=== PATIENT | female | born 1955 | race Caucasian/White ===

== ENCOUNTER → 2016-10-19 | Outpatient (CLI) | payer BC ==
--- NOTE | 2016-10-22 11:47 | MM ---
Reason for exam: screening (asymptomatic). Last mammogram was performed 2 years and 9 months ago. History: Patient is postmenopausal. Family history of breast cancer in aunt. Benign stereotactic core biopsy of the left breast, April 25, 2001. Core biopsy of the left breast. Taking unspecified hormones for 2 months. Physical Findings: A clinical breast exam by your physician is recommended on an annual basis and results should be correlated with mammographic findings. MG Screening Mammo w CAD Bilateral CC and MLO view(s) were taken. XCCL view(s) were taken of the right breast. Prior study comparison: January 06, 2014, bilateral MG screening mammo w CAD. May 09, 2012, bilateral digital screening mammo w/CAD. Finding: There is a 9 mm equal density mass in the upper outer quadrant of the left breast. Previous mammotome biopsy in the left breast. There is a chronic nodularity in the left breast. ASSESSMENT: Incomplete: need additional imaging evaluation, BI-RAD 0 RECOMMENDATION: Special view mammogram of the left breast. If lesion persists on supplemental views, image directed ultrasound is recommended. [facility] will attempt to contact patient to return for supplemental views and ultrasound if indicated.
== END | disposition home or self-care (01) ==
LOC: RADMAMWWP 11:44
PROVIDERS: ATTEND Internal Medicine
DX: Z12.31 Encounter for screening mammogram for malignant neoplasm of breast (principal)

== ENCOUNTER 2017-03-30 13:14 | Emergency (ER) | payer BC ==
[2017-03-30] MEDS ORDERED: ADENOSINE 3 MG/ML 2 ML VIAL IVP STA ×2 (13:42)
[2017-03-30] MEDS ORDERED: DILTIAZEM 125 MG in SODIUM CHLORIDE 0.9% 100 ML IV ONE (13:48)
[2017-03-30] MEDS ORDERED: SODIUM CHLORIDE 0.9% 500 ML IV STA (13:51)
[2017-03-30 13:55] LABS: Basophils # (A) 0.1 k/uL (0-0.2); Basophils % (A) 1 %; Eosinophils # (A) 0.2 k/uL (0-0.7); Eosinophils % (A) 2 %; HCT 49.6 % (34.0-46.0); HGB 15.6 gm/dL (11.4-16.0); Lymphocytes # (A) 3.5 k/uL (1.0-4.8); Lymphocytes % (A) 28 %; MCH 30.3 pg (25.0-35.0); MCHC 31.4 g/dL (31.0-37.0); MCV 96.7 fL (80.0-100.0); Mean Platelet Volume 7.8; Monocytes # (A) 0.4 k/uL (0-1.0); Monocytes % (A) 4 %; Neutrophils % (A) 65 %; Platelet Count 476 k/uL (150-450); RBC 5.13 m/uL (3.80-5.40); RDW 14.4 % (11.5-15.5); WBC 12.4 k/uL (3.8-10.6)
[2017-03-30 13:57] VITALS: RESP 18
--- NOTE | 2017-03-30 14:01 | ED ---
Arrhythmia/Palpitations HPI - General Chief Complaint: Arrhythmia/Palpitations Stated Complaint: Tachycardia Time Seen by Provider: 03/30/17 13:29 Source: patient, RN notes reviewed Mode of arrival: wheelchair - History of Present Illness Initial Comments: This is a 61-year-old female history of atrial fibrillation who states she woke up this way with increased heart rate and this he has lightheadedness dizziness and sweating. She thought she might be back in atrial fibrillation she had no overt chest pain. No other symptoms she states she believes she felt okay last night when she went to bed. She is on medication but does not know the names of them MD Complaint: rapid heart beat, palpitations, irregular heart beat - Related Data Home Medications Medication Instructions Recorded Confirmed Aspirin 81 mg PO DAILY 03/30/17 03/30/17 LORazepam [Ativan] 0.5 mg PO BID PRN 03/30/17 03/30/17 Lisinopril [Zestril] 10 mg PO DAILY 03/30/17 03/30/17 Metoprolol Succinate (ER) [Toprol 25 mg PO DAILY 03/30/17 03/30/17 Xl] Allergies Allergy/AdvReac Type Severity Reaction Status Date / Time No Known Allergies Allergy Verified 03/30/17 14:02 Review of Systems ROS Statement: Those systems with pertinent positive or pertinent negative responses have been documented in the HPI. ROS Other: All systems not noted in ROS Statement are negative. Past Medical History Past Medical History: Hypertension History of Any Multi-Drug Resistant Organisms: None Reported Past Surgical History: Section Past Psychological History: No Psychological Hx Reported Smoking Status: Current every day smoker Past Alcohol Use History: None Reported Past Drug Use History: None Reported General Exam - General Exam Comments Initial Comments: This a well-developed well-nourished awake alert oriented 3 female General appearance: alert, anxious Head exam: Present: atraumatic, normocephalic, normal inspection Eye exam: Present: normal appearance, PERRL, EOMI. Absent: scleral icterus, conjunctival injection, periorbital swelling ENT exam: Present: normal exam, mucous membranes moist Neck exam: Present: normal inspection. Absent: tenderness, meningismus, lymphadenopathy Respiratory exam: Present: normal lung sounds bilaterally. Absent: respiratory distress, wheezes, rales, rhonchi, stridor Cardiovascular Exam: Present: tachycardia. Absent: systolic murmur, diastolic murmur, rubs, gallop, clicks GI/Abdominal exam: Present: soft, normal bowel sounds. Absent: distended, tenderness, guarding, rebound, rigid Extremities exam: Present: normal inspection, full ROM, normal capillary refill. Absent: tenderness, pedal edema, joint swelling, calf tenderness Back exam: Present: normal inspection Neurological exam: Present: alert, oriented X3, CN II-XII intact Psychiatric exam: Present: normal affect, normal mood Skin exam: Present: warm, dry, intact, normal color. Absent: rash Course Vital Signs 03/30/17 03/30/17 03/30/17 13:19 13:47 13:57 Temperature 96.9 F L 96.8 F L Pulse Rate 160 H 136 H 89 Respiratory 20 20 18 Rate Blood Pressure 154/66 115/72 120/67 O2 Sat by Pulse 100 95 98 Oximetry 03/30/17 14:18 Temperature Pulse Rate 89 Respiratory 18 Rate Blood Pressure 118/68 O2 Sat by Pulse 98 Oximetry - Reevaluation(s) Reevaluation #1: 03/30/17 15:13 Repeat EKG after conversion shows a patient be a sinus rhythm with first-degree AV block rate was 74. Interval 218 QRS duration 70 QT/QTC of 302/390 is noted to be a normal EKG.. This appears be normal sinus rhythm at this time. EKG Findings - EKG Results: EKG: interpreted by ERMD (The parents were ventricular tachycardia) EKG shows: tachycardia (Apparent supraventricular tachycardia rate of 175 QRS 62 QT since QTC at 262/[address] configuration) Procedures - Procedures Initial comment: The patient appeared to be in SVT though she did have a history of atrial fibrillation 6 mg of it then occurred were given and she is observed briefly go into a sinus rhythm. She did go back up into a fast rhythm in the 151 60 bpm range however is more irregular such as seeing with Meghan streeter. She did ultimately spontaneously converted to a sinus rhythm. Medical Decision Making - Medical Decision Making I had a long discussion with the patient regarding findings she was like to go home she'll be discharged she is a follow-up with his doctor return when necessary continue with her current medications. The presentation appears be consistent with a Meghan fib RVR presentation which did convert. - Lab Data Result diagrams: 03/30/17 13:39 03/30/17 13:39 Lab Results 03/30/17 03/30/17 03/30/17 Range/Units 13:39 13:39 13:39 WBC 12.4 H (3.8-10.6) k/uL RBC 5.13 (3.80-5.40) m/uL Hgb 15.6 (11.4-16.0) gm/dL Hct 49.6 H (34.0-46.0) % MCV 96.7 (80.0-100.0) fL MCH 30.3 (25.0-35.0) pg MCHC 31.4 (31.0-37.0) g/dL RDW 14.4 (11.5-15.5) % Plt Count 476 H (150-450) k/uL Neutrophils % 65 % Lymphocytes % 28 % Monocytes % 4 % Eosinophils % 2 % Basophils % 1 % Neutrophils # 8.0 H (1.3-7.7) k/uL Lymphocytes # 3.5 (1.0-4.8) k/uL Monocytes # 0.4 (0-1.0) k/uL Eosinophils # 0.2 (0-0.7) k/uL Basophils # 0.1 (0-0.2) k/uL PT (9.0-12.0) sec INR (<1.2) APTT (22.0-30.0) sec Sodium 140 (137-145) mmol/L Potassium 4.6 (3.5-5.1) mmol/L Chloride 109 H (98-107) mmol/L Carbon Dioxide 20 L (22-30) mmol/L Anion Gap 11 mmol/L BUN 18 H (7-17) mg/dL Creatinine 0.90 (0.52-1.04) mg/dL Est GFR (MDRD) Af Amer >60 (>60 ml/min/1.73 sqM) Est GFR (MDRD) Non-Af >60 (>60 ml/min/1.73 sqM) Glucose 129 H (74-99) mg/dL Calcium 10.3 H (8.4-10.2) mg/dL Magnesium 2.0 (1.6-2.3) mg/dL Total Bilirubin 0.4 (0.2-1.3) mg/dL AST 18 (14-36) U/L ALT 28 (9-52) U/L Alkaline Phosphatase 79 (38-126) U/L Total Creatine Kinase 63 (30-135) U/L CK-MB (CK-2) 1.4 (0.0-2.4) ng/mL CK-MB (CK-2) Rel Index 2.2 Troponin I <0.012 (0.000-0.034) ng/mL Total Protein 6.8 (6.3-8.2) g/dL Albumin 4.1 (3.5-5.0) g/dL TSH 4.250 (0.465-4.680) mIU/L 03/30/17 Range/Units 13:39 WBC (3.8-10.6) k/uL RBC (3.80-5.40) m/uL Hgb (11.4-16.0) gm/dL Hct (34.0-46.0) % MCV (80.0-100.0) fL MCH (25.0-35.0) pg MCHC (31.0-37.0) g/dL RDW (11.5-15.5) % Plt Count (150-450) k/uL Neutrophils % % Lymphocytes % % Monocytes % % Eosinophils % % Basophils % % Neutrophils # (1.3-7.7) k/uL Lymphocytes # (1.0-4.8) k/uL Monocytes # (0-1.0) k/uL Eosinophils # (0-0.7) k/uL Basophils # (0-0.2) k/uL PT 9.8 (9.0-12.0) sec INR 1.0 (<1.2) APTT 25.1 (22.0-30.0) sec Sodium (137-145) mmol/L Potassium (3.5-5.1) mmol/L Chloride (98-107) mmol/L Carbon Dioxide (22-30) mmol/L Anion Gap mmol/L BUN (7-17) mg/dL Creatinine (0.52-1.04) mg/dL Est GFR (MDRD) Af Amer (>60 ml/min/1.73 sqM) Est GFR (MDRD) Non-Af (>60 ml/min/1.73 sqM) Glucose (74-99) mg/dL Calcium (8.4-10.2) mg/dL Magnesium (1.6-2.3) mg/dL Total Bilirubin (0.2-1.3) mg/dL AST (14-36) U/L ALT (9-52) U/L Alkaline Phosphatase (38-126) U/L Total Creatine Kinase (30-135) U/L CK-MB (CK-2) (0.0-2.4) ng/mL CK-MB (CK-2) Rel Index Troponin I (0.000-0.034) ng/mL Total Protein (6.3-8.2) g/dL Albumin (3.5-5.0) g/dL TSH (0.465-4.680) mIU/L - Radiology Data Radiology results: report reviewed (I did review the imaging and report no acute findings.), image reviewed Disposition Clinical Impression: Atrial fibrillation with rapid ventricular response Disposition: HOME SELF-CARE Instructions: Palpitations (ED), A-fib (Atrial Fibrillation) (ED) Referrals: Brandyn Zaidi MD [Primary Care Provider] - 1-2 days
[2017-03-30 14:03] LABS: Partial Thromboplastin Time 25.1 sec (22.0-30.0); Prothrombin Time 9.8 sec (9.0-12.0)
[2017-03-30 14:07] LABS: ALT 28 U/L (9-52); AST 18 U/L (14-36); Albumin 4.1 g/dL (3.5-5.0); Alkaline Phosphatase 79 U/L (38-126); Anion Gap 11 mmol/L; Blood Urea Nitrogen 18 mg/dL (7-17); Calcium 10.3 mg/dL (8.4-10.2); Carbon Dioxide 20 mmol/L (22-30); Chloride 109 mmol/L (98-107); Glucose 129 mg/dL (74-99); Potassium 4.6 mmol/L (3.5-5.1); Sodium 140 mmol/L (137-145); Total Bilirubin 0.4 mg/dL (0.2-1.3); Total Protein 6.8 g/dL (6.3-8.2)
[2017-03-30 14:14] LABS: Creatine Kinase 63 U/L (30-135)
--- NOTE | 2017-03-30 14:15 | XR ---
EXAMINATION TYPE: XR chest 2V DATE OF EXAM: 03/30/2017 COMPARISON: NONE HISTORY: Tachycardia. TECHNIQUE: Frontal and lateral views of the chest are obtained. FINDINGS: There is no focal air space opacity, pleural effusion, or pneumothorax seen. There is a va agnes linear density along the left lung base of unknown significance. The cardiac silhouette size is w ithin normal limits. The osseous structures are intact. IMPRESSION: No acute cardiopulmonary process.
[2017-03-30 14:27] LABS: Creatine Kinase MB 1.4 ng/mL (0.0-2.4); Troponin I <0.012 ng/mL (0.000-0.034)
[2017-03-30 15:24] VITALS: BP 119/78; PULSE 80; TEMP 97.8
== END 2017-03-30 15:24 | disposition home or self-care (01) ==
LOC: EC 13:14
DX: I48.91 Unspecified atrial fibrillation (principal); I10 Essential (primary) hypertension; F17.200 Nicotine dependence, unspecified, uncomplicated; Z79.82 Long term (current) use of aspirin; Z79.899 Other long term (current) drug therapy
CPT/HCPCS: 36415; 93005; 80053; 82550; 82553; 83735; 84443; 84484; 85025; 85610; 85730; 71046; 99285; 96374; J0153

== ENCOUNTER → 2017-04-26 | Outpatient (CLI) | payer BC ==
--- NOTE | 2017-04-26 13:43 | ECHOS ---
STRESS ECHOCARDIOGRAM DATE OF SERVICE: 04/26/2017 INDICATIONS: Rapid heart beat. MEDICATIONS: Metoprolol, lisinopril, Xarelto, lorazepam. BASELINE HEART RATE: 74 BASELINE BLOOD PRESSURE: 146/83 MAXIMUM HEART RATE: 137 MAXIMUM BLOOD PRESSURE: 160/65 85% MPHR: 134 100% MPHR: 158 METS: @@ MAXIMUM STAGE REACHED: I TOTAL EXERCISE TIME: 3:14 CLINICAL INFORMATION: Patient exercised on Jw protocol for 3 minute, 14 seconds reaching peak rate of 137 beats per minute, which is equal to 86% of maximum predicted heart rate. Peak blood pressure 160/65 mmHg. Test was terminated secondary to fatigue. There was no chest pain. Electrocardiograph monitoring revealed no evidence of diagnostic ischemic ST deviation. Baseline echocardiogram revealed normal wall motion. At peak exercise, there was normal wall motion augmentation with no hypokinesis or dyskinesis. CONCLUSION: 1. Poor exercise tolerance with normal electrocardiograph response to exercise. 2. Normal stress echocardiogram with no evidence of stress-induced ischemia. MMODL / IJN: [id number] / [facility]
== END | disposition home or self-care (01) ==
LOC: RADNMMAIN 08:55
PROVIDERS: ATTEND Internal Medicine
DX: I48.91 Unspecified atrial fibrillation (principal)
CPT/HCPCS: 93350; 93017; Q9950

== ENCOUNTER → 2018-02-11 | Outpatient (CLI) | payer BC ==
--- NOTE | 2018-02-12 11:51 | MM ---
Reason for exam: clinical finding. Last mammogram was performed 1 year and 4 months ago. History: Patient is postmenopausal. Family history of breast cancer in aunt. Benign stereotactic core biopsy of the left breast, April 25, 2001. Core biopsy of the left breast. Taking unspecified hormones for 2 months. Indicated problem(s): lump or thickening in the left breast. Physical Findings: Nurse Summary: 1 x 1.5cm nodule in the left breast at 3 o'clock (nurse ts). MG 3D Diag Mammo W/Cad EFRAÍN Bilateral CC and MLO view(s) were taken. Prior study comparison: October 19, 2016, bilateral MG screening mammo w CAD. January 06, 2014, bilateral MG screening mammo w CAD. Finding: There is an intermediate concern, suspicious 14 mm high density, microlobulated round mass located 3 cm from the nipple in the upper outer quadrant, anterior position of the left breast. Focal asymmetry right upper MLO view. These results were verbally communicated with the patient and result sheet given to the patient on 02/11/18. ASSESSMENT: Incomplete: need additional imaging evaluation, BI-RAD 0 RECOMMENDATION: Ultrasound of the left breast.
--- NOTE | 2018-02-12 11:53 | USB ---
Reason for exam: additional evaluation requested from abnormal screening. History: Patient is postmenopausal. Family history of breast cancer in aunt. Benign stereotactic core biopsy of the left breast, April 25, 2001. Core biopsy of the left breast. Taking unspecified hormones for 2 months. US Breast Limited LT Left limited breast ultrasound including focal area of concern, retroareolar and axilla demonstrates a 1.7 x 1.2 x 1.4cm solid lesion at 2-3 o'clock, clip may be within. These results were verbally communicated with the patient and result sheet given to the patient on 02/11/18. ASSESSMENT: Suspicious, BI-RAD 4 RECOMMENDATION: Ultrasound core biopsy of the left breast. Called Dr. Zaidi with mammographic findings and has scheduled an appointment for the patient for 02/24/18 at 2:[address] Recio. PRELIMINARY REPORT CALLED AND FAXED TO DR. RECIO ON 02/12/18.
== END ==
LOC: RADMAMWWP 14:46
PROVIDERS: ATTEND Internal Medicine
DX: N63.0 Unspecified lump in unspecified breast (principal); R92.8 Other abnormal and inconclusive findings on diagnostic imaging of breast
CPT/HCPCS: 77062; 77066

== ENCOUNTER → 2018-04-17 | Day surgery (SDC) | payer BC ==
[2018-04-17 13:14] VITALS: RESP 16; BMI 32.6
[2018-04-17 15:02] VITALS: BP 119/70; PULSE 69; TEMP 97.7
--- NOTE | 2018-04-17 16:05 | USB ---
EXAMINATION TYPE: US biopsy breast VAD LT DATE OF EXAM: 04/17/2018 CLINICAL HISTORY: Left Breast Mass, N63. TECHNIQUE: Ultrasound guided core biopsy of left breast. COMPARISON: 02/11/2018 FINDINGS: The procedure of ultrasound guided core biopsy was explained to the patient. Benefits, alternatives, and risks were discussed. An informed consent was then obtained. The patient was placed in supine positioning for imaging and for the procedure. The overlying skin was prepped and draped in usual sterile fashion. Lidocaine with epinephrine buffered with bicarbonate was used as anesthetic. Additional lidocaine with sodium bicarbonate was utilized to anesthetize the skin. Initial injections were discussed for both to the patient and careful anesthetization for the procedure was performed. Following successful anesthetization patient was comfortable throughout the procedure. A small skin bandar was made with surgical scalpel. Under ultrasound guidance, a 12-gauge vacuum assisted biopsy gun device was used to obtain 7 core samples. Following this, a biopsy clip was left in lesion. Sampling was performed from the posterior margin which is where the clip was placed. The patient tolerated the procedure well without any immediate complication. Postprocedure mammogram was ordered by the physician in performed. Clip is adjacent to the prior biopsy clip at the enlarging masslike area. The patient was kept in the radiology department for short stay after the procedure and then discharged home in stable condition. Discharge instructions were discussed with the patient. IMPRESSION: 1. Successful ultrasound-guided core biopsy left breast mass. Recommendations: 1. Recommendations are pending pathology results. Pathology Results: Malignant LEFT BREAST, THREE O'CLOCK POSITION, MAMMOTOME BIOPSIES: Infiltrating low grade ductal adenocarcinoma, Nena Grade I, occupying approximately 25% tissue volume. Recommendation Surgical consult of the left breast. ROSEANNE
== END ==
LOC: RADUSWWP 12:56
PROVIDERS: ATTEND Surgery
DX: C50.812 Malignant neoplasm of overlapping sites of left female breast (principal)
CPT/HCPCS: 88305; 88342; 88341; 77065; 19083; A4648

== ENCOUNTER 2018-05-15 07:30 | Day surgery (SDC) | payer BC ==
[2018-05-12 17:36] VITALS: BMI 34.2
[~2018-05-15 07:30] MED LIST: DEXAMETHASONE SOD PHOSPHATE 10 MG/ML 1 ML VIAL IV ONE; HEPARIN SODIUM,PORCINE 5,000 UNIT/ML 1 ML VIAL SQ ONE; LACTATED RINGERS 1,000 ML IV SCH; LIDOCAINE 1% 20 ML VIAL (10MG/ML) FOR IV START INTRADERMA PRN; Pre Op ABX Message 1 EACH MISC MISCELLANE ONE; SCOPOLAMINE 1.5MG/72HR PATCH TRANSDERM ONE
[2018-05-15] MEDS: ONDANSETRON 4 MG/2 ML VIAL IVP ONE ×2 (08:03→12:55)
[2018-05-15] MEDS ORDERED: SODIUM BICARB 4% 5 ML VIAL (0.48 MEQ/ML) MISCELLANE ONE (09:32)
[2018-05-15] MEDS ORDERED: LIDOCAINE 1% INJ 10MG/ML (20 ML MDV) SQ ONE ×2 (09:32→11:42)
--- NOTE | 2018-05-15 10:10 | NM ---
EXAMINATION TYPE: NM sentinel node injection DATE OF EXAM: 05/15/2018 COMPARISON: NONE HISTORY: Left-sided breast cancer TECHNIQUE AND FINDINGS: The procedure of sentinel lymph node injection was explained to the patient. The benefits, alternatives, and risks were discussed. An informed consent was then obtained. Overlying skin is cleaned with sterile alcohol. Following this, 536 uCi Tc99m Tilmanocept was inject ed in the upper outer aspect of the left nipple intradermally. The patient tolerated the procedure well without any immediate complication. The patient was kept in the radiology department for short stay after the procedure and then taken to surgery for surgical p rocedure what is presumed intraoperative gamma probe will be used for sentinel lymph node detection. IMPRESSION: Left breast radiotracer injection for sentinel node localization as above.
[2018-05-15] MEDS ORDERED: LIDOCAINE (PF) 10 MG/ML 2 ML VIAL SQ ONE (10:53)
[2018-05-15] MEDS ORDERED: METHYLENE BLUE 10 MG/ML (10 ML VIAL) INJ ONE ×2 (10:59→11:38)
[2018-05-15] MEDS ORDERED: PHENYLEPHRINE-0.9% NACL SYG 1 MG/10 ML SYRINGE ONE (11:10)
[2018-05-15] MEDS ORDERED: ePHEDrine SULFATE/0.9% NACL/PF 50 MG/5 ML SYRINGE IV ONE (11:10)
[2018-05-15] MEDS ORDERED: fentaNYL (PF) 50 MCG/ML 2 ML AMP ONE (11:10)
[2018-05-15] MEDS ORDERED: SUCCINYLCHOLINE CHLORIDE 100 MG/5 ML SYR IV ONE (11:10)
[2018-05-15] MEDS ORDERED: LIDOCAINE 1% INJ 10MG/ML (20 ML MDV) ONE (11:10)
[2018-05-15] MEDS ORDERED: PROPOFOL 10 MG/ML 20 ML VIAL IV ONE (11:10)
[2018-05-15] MEDS ORDERED: ceFAZolin 1,000 MG VIAL ONE (11:10)
[2018-05-15] MEDS ORDERED: MIDAZOLAM 2 MG/2 ML VIAL ONE (11:10)
[2018-05-15] MEDS ORDERED: LACTATED RINGERS 1,000 ML IV ONE (12:27)
--- NOTE | 2018-05-15 12:45 | P.OP ---
Date of Procedure: 05/15/18 Preoperative Diagnosis: Left breast invasive ductal carcinoma Postoperative Diagnosis: Left breast invasive ductal carcinoma Procedure(s) Performed: Left breast lumpectomy, sentinel node biopsy Anesthesia: CARLOS Surgeon: Ari Trinidad Pathology: other (Left axillary sentinel node, left breast mass) Condition: stable Disposition: same day Indications for Procedure: 63-year-old female with diagnosis of invasive ductal carcinoma. On workup, the patient was found to have a biopsy-proven invasive ductal carcinoma. The patient was also discussed at breast tumor board and all attending were in agreement for moving forward with left-sided lumpectomy along with sentinel node biopsy. Prior to attending the operating suite, the patient did attend radiology to have radionucleotide injection along with needle localization. The patient was explained the risks, benefits and alternatives to the procedure and did provide consent prior to attending the operating suite. Operative Findings: Left axillary sentinel node, blue and hot Left breast mass Description of Procedure: The patient was brought into the operating suite and placed in supine position on the operating table. The patient was sedated by anesthesia and underwent endotracheal intubation. The patient was then prepped and draped in regular sterile fashion. The left chest and left axilla were appropriately prepped. An incision was made over the left axilla where the probe was showing signal and dissection was then carried towards the lymph node, using the probe as a guide. The lymph node was then clearly visualized as it was blue. Careful dissection was used to dissect the node and handed off as specimen. The probe was then replaced in the axilla and no additional hot areas were noted. This area was then packed and attention was turned towards the breast. A curvilinear incision was made and dissection was carried to free the needle from the skin bridge. Once the needle was freed, using the mammogram findings in the room, dissection was carried towards the anticipated cancer site. Dissection was carried in the 360 manner to free all of the margins from the palpable mass. This was done with electrocautery. Hemostasis was maintained. The entire specimen was then removed and labeled with a short superior stitch along with a long lateral stitch. Frozen section of the lymph node was also performed and was noted to be negative. The incisions were then both examined and hemostasis was maintained. Both incisions were closed in layered fashion with 301 4-0 Vicryl suture. The patient was awakened in the operating suite and taken to postanesthesia care unit in stable condition.
[2018-05-15 12:48] VITALS: TEMP 98.2
[2018-05-15] MEDS: HYDROmorphone 0.5 MG/0.5 ML SYRINGE IVP PRN ×2 (12:55→13:03)
[2018-05-15 12:59] VITALS: RESP 16
--- NOTE | 2018-05-15 13:10 | USB ---
EXAM: Needle localization with wire placement. CLINICAL HISTORY: Biopsy-proven carcinoma left breast TECHNIQUE: Needle localization with wire placement and surgical excision of area of concern in the left breast. COMPARISON: Prior mammogram and ultrasound April 17, 2018 and older studies FINDINGS: The procedure of needle localization with wire placement and than surgical excision was explained to the patient. Benefits, alternatives, and risks were discussed. An informed consent was then obtained. Because lesion was sampled and well seen on ultrasound, ultrasound localization was chosen. The overlying skin was prepped and draped in usual sterile fashion. Lidocaine buffered with bicarbonate was used as anesthetic into the skin and subcutaneous tissue up to the level of area of concern. A 5 cm needle was used. It was placed via ultrasound guidance. At this point, wire was placed and the needle was withdrawn. The wire was fixed to patient's skin. Diagnostic Mammogram after wire placement was performed due to surgeon request. This confirms placement of wire through targeted biopsy-proven malignancy or mass in the left breast. Images were marked for surgeon. The patient tolerated the procedure well without any immediate complication. The patient was kept in the radiology department for short stay after the procedure and then taken to surgery for surgical excision. Targeted mass and wire are identified in specimen mammogram. The patient was kept in hospital for short stay after the procedure and then discharged home in stable condition. IMPRESSION: Successful, uncomplicated needle localization with wire placement and surgical excision of biopsy-proven malignancy in the left breast, full pathology results to follow. Pathology Results: Malignant A. SENTINEL LYMPH NODE #1, BIOPSY: Lymph node negative for metastatic adenocarcinoma by H and E as well as appropriately controlled CK 7 and JENNY stained sections.. B. LEFT BREAST, ANTERIOR SUPERIOR MARGIN, BIOPSY: Breast parenchyma negative for adenocarcinoma. C. LEFT BREAST, LUMPECTOMY: 2.2 x 1.7 x 1.6 cm Grade I of III infiltrating ductal adenocarcinoma focally contacting the blue inked anterior margin near the superior black inked margin. See Surgical Pathology Cancer Case Summary. Recommendation Appropriate oncologic management. MTDD
[2018-05-15] MEDS ORDERED: HYDROcodone/APAP 5-325MG 1 EACH TAB PO ONE (13:35)
[2018-05-15 13:57] VITALS: BP 115/61; PULSE 84
== END 2018-05-15 14:08 | disposition home or self-care (01) ==
LOC: OR 07:30
PROVIDERS: ATTEND Surgery
DX: C50.912 Malignant neoplasm of unspecified site of left female breast (principal); I10 Essential (primary) hypertension; I48.91 Unspecified atrial fibrillation; F17.210 Nicotine dependence, cigarettes, uncomplicated; Z86.79 Personal history of other diseases of the circulatory system; Z79.01 Long term (current) use of anticoagulants; Z79.899 Other long term (current) drug therapy
CPT/HCPCS: 19301; 38525; 19285; 88342; 88331; 88307; 88341; 77065; 76098; 38792; A9520; J2250; J1644; J1100; J2405; J0690; J2001; Q9968; J3010; J2370; J0330; J2704; J1170

== ENCOUNTER → 2019-02-03 | Outpatient (CLI) | payer BC ==
--- NOTE | 2019-02-03 15:46 | BD ---
EXAMINATION TYPE: Axial Bone Density DATE OF EXAM: 02/03/2019 COMPARISON: 09/13/2006 CLINICAL HISTORY: Postmenopausal female. History of breast cancer. Height: 4'11 Weight: 171 FRAX RISK QUESTIONS: Secondary Osteoporosis: Current Tobacco Use: Y RISK FACTORS HISTORY OF: History of Wrist Fracture: rt When: age 5 Diet low in dairy products/other sources of calcium: y Postmenopausal woman: y MEDICATIONS: Additional Medications: blood pressure, blood thinner, Additional History: chemo breast cancer 2018 EXAM MEASUREMENTS: Bone mineral densitometry was performed using the [employer]. Bone mineral density as measured about the Lumbar spine is: ----- L1-L4(G/cm2): 1.139 T Score Values are as follows: ----- L2: -0.8 ----- L3: 0.1 ----- L4: -0.8 ----- L1-L4: -0.3 Bone mineral density has: Decreased -18.5% since study of: 09/13/2006 Bone mineral density about the R hip (g/cm2): 0.807 Bone mineral density about the L hip (g/cm2): 0.841 T Score values are as follows: -----R Neck: -1.7 -----L Neck: -1.4 -----R Total: -0.3 -----L Total: -0.7 IMPRESSION: Osteopenia (T Score between -2.5 and -1). There is slightly increased risk of fracture and the patient may be considered for treatment. Re-Screen 2-5 years. NOTE: T-SCORE=SD OF THE YOUNG ADULT MEAN.
== END | disposition home or self-care (01) ==
LOC: RADBDWWP 14:48
PROVIDERS: ATTEND Internal Medicine Hematology & Oncology
DX: M85.80 Other specified disorders of bone density and structure, unspecified site (principal); Z79.890 Hormone replacement therapy
CPT/HCPCS: 77080

== ENCOUNTER → 2019-05-18 | Outpatient (CLI) | payer BC ==
--- NOTE | 2019-05-18 15:09 | MM ---
Reason for exam: additional evaluation requested from prior study. Last mammogram was performed 1 year ago. History: Patient is postmenopausal and has history of breast cancer at age 63. Family history of breast cancer in maternal aunt. Malignant US breast localization LT, May 15, 2018. Lumpectomy of the left breast, May 15, 2018. Malignant US biopsy breast VAD LT of the left breast, April 17, 2018. Benign stereotactic core biopsy of the left breast, April 25, 2001. Core biopsy of the left breast. Taking antineoplastic for 1 year. Physical Findings: 1.5 x 1cm nodule in the left breast at 6 o'clock (nurse ts). MG 3D Diag Mammo W/Cad EFRAÍN Bilateral CC and MLO view(s) were taken. LM view(s) were taken of the left breast. Prior study comparison: May 15, 2018, left breast MG diagnostic mammo LT wo CAD. April 17, 2018, left breast MG diagnostic mammo LT wo CAD. No suspicious abnormality. Left palpable correlates to fat necrosis. Left upper outer quadrant architectural distortion may be post surgical. These results were verbally communicated with the patient and result sheet given to the patient on 05/18/19. ASSESSMENT: Incomplete: need additional imaging evaluation, BI-RAD 0 RECOMMENDATION: Ultrasound of the left breast.
--- NOTE | 2019-05-18 15:11 | USB ---
Reason for exam: additional evaluation requested from abnormal screening. History: Patient is postmenopausal and has history of breast cancer at age 63. Family history of breast cancer in maternal aunt. Malignant US breast localization LT, May 15, 2018. Lumpectomy of the left breast, May 15, 2018. Malignant US biopsy breast VAD LT of the left breast, April 17, 2018. Benign stereotactic core biopsy of the left breast, April 25, 2001. Core biopsy of the left breast. Taking antineoplastic for 1 year. US Breast Limited LT Left limited breast ultrasound including focal area of concern, retroareolar and axilla demonstrates a 1.4 x 0.9 x 1.0cm hypoechoic scar versus fat necrosis versus recurrence at 3 o'clock and a 2.4 x 1.8 x 2.5cm mixed lesion, fat necrosis at 5 o'clock BB as seen on mammogram. These results were verbally communicated with the patient and result sheet given to the patient on 05/18/19. ASSESSMENT: Suspicious, BI-RAD 4 RECOMMENDATION: Ultrasound core biopsy of the left breast. Called office with mammographic findings and has scheduled an appointment for the patient for 05/25/19 at 3:[address] Recio. PRELIMINARY REPORT CALLED AND FAXED TO DR. RECIO ON 05/18/19.
== END | disposition home or self-care (01) ==
LOC: RADMAMWWP 12:46
PROVIDERS: ATTEND Radiology Diagnostic Radiology
DX: Z12.31 Encounter for screening mammogram for malignant neoplasm of breast (principal); Z08 Encounter for follow-up examination after completed treatment for malignant neoplasm; Z85.3 Personal history of malignant neoplasm of breast; R92.8 Other abnormal and inconclusive findings on diagnostic imaging of breast
CPT/HCPCS: 77062; 77066

== ENCOUNTER → 2019-09-24 | Day surgery (SDC) | payer BC ==
--- NOTE | 2019-09-24 15:12 | USB ---
EXAMINATION TYPE: US biopsy breast VAD LT, US biopsy breast add'l VAD LT, MG diagnostic mammo LT wo CAD DATE OF EXAM: 09/24/2019 CLINICAL HISTORY: 64-year-old female with personal history of left Z85.3 HX BREAST CA. Referred for ultrasound-guided core needle biopsy 2 sites in the left breast. TECHNIQUE: Ultrasound guided core biopsy of the left breast, 2 sites. COMPARISON: 05/18/2019 FINDINGS: The procedure of ultrasound guided core biopsy was explained to the patient. Benefits, alternatives, and risks were discussed. An informed consent was then obtained. The patient was placed in supine positioning for imaging and for the procedure. The overlying skin was prepped and draped in usual sterile fashion. Lidocaine was used as anesthetic into the skin and subcutaneous tissue up to area of concern in the left breast, at each site internship coordinator. Site A, 3:00, possible postsurgical change: Under ultrasound guidance, a 13- gauge vacuum assisted Mammotome Elite biopsy gun device was used to obtain 5 core samples. Following this, a coil clip was left in lesion. Site B, 5:00, periareolar, possible intraductal/intracystic lesion: Under ultrasound guidance, a 13-gauge vacuum assisted Mammotome Elite biopsy gun device was used to obtain 7 core samples. Following this, a wing clip was left at the site of biopsies. The patient tolerated the procedure well without any immediate complication. The patient was kept in the radiology department for short stay after the procedure and then discharged home in stable condition. Postbiopsy mammogram shows the coil and clips in place. IMPRESSION: Successful, uncomplicated two site ultrasound guided core biopsy of area of concern in the left breast in a patient with history of left breast cancer. Full pathology results to follow. Pathology Results: Benign A. LEFT BREAST, SITE A, 3:00, ULTRASOUND GUIDED CORE BIOPSY: Fat necrosis and scar/fibrosis. Negative for malignancy. B. LEFT BREAST, SITE B, 5:00, ULTRASOUND GUIDED CORE BIOPSY: Fat necrosis with calcifications and scar/fibrosis. Negative for malignancy. Recommendation Follow up ultrasound of the left breast in 6 months. JHONNYD
[2019-09-25 10:09] VITALS: BP 139/77; PULSE 78; RESP 16; TEMP 98
== END ==
LOC: RADUSWWP 11:51
PROVIDERS: ATTEND Surgery
DX: N64.1 Fat necrosis of breast (principal); N60.32 Fibrosclerosis of left breast; L90.5 Scar conditions and fibrosis of skin; Z85.3 Personal history of malignant neoplasm of breast
CPT/HCPCS: 88305; 77065; 19083; 19084; A4648; J2001

== ENCOUNTER → 2020-03-21 | Outpatient (CLI) | payer BC ==
--- NOTE | 2020-03-22 09:43 | USB ---
Reason for exam: follow-up at short interval from prior study. History: Patient is postmenopausal and has history of breast cancer at age 63. Family history of breast cancer in maternal aunt. Benign US biopsy breast VAD LT of the left breast, September 24, 2019. Benign US biopsy breast add'l VAD LT of the left breast, September 24, 2019. Malignant US breast localization LT, May 15, 2018. Lumpectomy of the left breast, May 15, 2018. Malignant US biopsy breast VAD LT of the left breast, April 17, 2018. Benign stereotactic core biopsy of the left breast, April 25, 2001. Core biopsy of the left breast. Taking antineoplastic for 1 year. Physical Findings: Nurse did not find any significant physical abnormalities on exam. US Breast Limited LT Left limited breast ultrasound including focal area of concern, retroareolar and axilla demonstrates a 2.0 x 1.5 x 1.4cm oval, solid, vague lesion at 3 o'clock, prior biopsy and a 1.6 x 1.0 x 1.4cm oval, mixed lesion at 5 o'clock, prior biopsy. Continued follow up recommended given atypical appearance to fat necrosis. Scanned 12-6 o'clock. These results were verbally communicated with the patient and result sheet given to the patient on 03/21/20. ASSESSMENT: Probably benign, BI-RAD 3 RECOMMENDATION: Follow-up diagnostic mammogram of both breasts in 2 months. Ultrasound of the left breast in 2 months. Back on schedule for May 2020.
== END | disposition home or self-care (01) ==
LOC: RADUSWWP 14:38
PROVIDERS: ATTEND Surgery
DX: N64.1 Fat necrosis of breast (principal)

== ENCOUNTER → 2020-06-24 | Outpatient (CLI) | payer BC ==
--- NOTE | 2020-06-24 12:24 | MM ---
Reason for exam: additional evaluation requested from prior study. Last mammogram was performed 9 months ago. History: Patient is postmenopausal and has history of breast cancer at age 63. Family history of breast cancer in maternal aunt. Benign US biopsy breast VAD LT of the left breast, September 24, 2019. Benign US biopsy breast add'l VAD LT of the left breast, September 24, 2019. Malignant US breast localization LT, May 15, 2018. Lumpectomy of the left breast, May 15, 2018. Malignant US biopsy breast VAD LT of the left breast, April 17, 2018. Benign stereotactic core biopsy of the left breast, April 25, 2001. Core biopsy of the left breast. Taking antineoplastic for 2 years beginning at age 63. Physical Findings: Nurse did not find any significant physical abnormalities on exam. MG 3D Diag Mammo W/Cad EFRAÍN Bilateral CC and MLO view(s) were taken. Prior study comparison: September 24, 2019, left breast MG diagnostic mammo LT wo CAD. May 18, 2019, bilateral MG 3d diag mammo w/cad EFRAÍN. There are scattered fibroglandular densities. Previous mammotome biopsy in the left breast x 2. Post surgical and post therapy change left breast. New calcifications 6 o'clock and new calcifications anteriorly and laterally. On magnification views, the lateral calcifications may be vascular and the 6 o'clock calcifications may be early fat necrosis. These results were verbally communicated with the patient and result sheet given to the patient on 06/24/20. ASSESSMENT: Incomplete: need additional imaging evaluation, BI-RAD 0 RECOMMENDATION: Ultrasound of the left breast. (as ordered)
--- NOTE | 2020-06-24 12:27 | USB ---
Reason for exam: additional evaluation requested from abnormal screening. History: Patient is postmenopausal and has history of breast cancer at age 63. Family history of breast cancer in maternal aunt. Benign US biopsy breast VAD LT of the left breast, September 24, 2019. Benign US biopsy breast add'l VAD LT of the left breast, September 24, 2019. Malignant US breast localization LT, May 15, 2018. Lumpectomy of the left breast, May 15, 2018. Malignant US biopsy breast VAD LT of the left breast, April 17, 2018. Benign stereotactic core biopsy of the left breast, April 25, 2001. Core biopsy of the left breast. Taking antineoplastic for 2 years beginning at age 63. US Breast Limited LT Left limited breast ultrasound including focal area of concern, retroareolar and axilla demonstrates a 1.8 x 1.7 x 1.3cm hypoechoic lesion at 3 o'clock versus 2.0 x 1.5 x 1.4cm previously, smaller but more well defined, corresponds to the previously biopsied scar and a 1.3 x 1.0 x 1.5cm mixed lesion at the posterior nipple, this site was also sampled but seem to be sharing increasing soft tissue, 6 month follow up recommended. Scanned 3-6 o'clock. These results were verbally communicated with the patient and result sheet given to the patient on 06/24/20. ASSESSMENT: Probably benign, BI-RAD 3 RECOMMENDATION: Follow-up diagnostic mammogram and ultrasound of the left breast in 6 months.
== END | disposition home or self-care (01) ==
LOC: RADMAMWWP 10:14
PROVIDERS: ATTEND Radiology Diagnostic Radiology
DX: Z78.0 Asymptomatic menopausal state (principal); Z85.3 Personal history of malignant neoplasm of breast
CPT/HCPCS: 77062; 77066

== ENCOUNTER → 2021-03-03 | Outpatient (CLI) | payer MEDICARE ==
--- NOTE | 2021-03-03 12:00 | BD ---
EXAMINATION TYPE: Axial Bone Density DATE OF EXAM: 03/03/2021 COMPARISON: 02/03/2019 CLINICAL HISTORY: Postmenopausal female. Height: 59.7 IN Weight: 185 LBS FRAX RISK QUESTIONS: Secondary Osteoporosis: 3. Menopause before 45: AGE 42 Current Tobacco Use: YES RISK FACTORS HISTORY OF: History of Wrist Fracture: YES RT WRIST When: AGE 10 Active: YES Postmenopausal woman: AGE 42 MEDICATIONS: Additional Medications: ANASTRAZOLE, CALCIUM, VIT D, METOPROLOL, LISINOPRIL, XARELTO, ATORVASTATIN Additional History: BREAST CANCER WITH CHEMO AND RADIATION EXAM MEASUREMENTS: Bone mineral densitometry was performed using the [employer] System. Bone mineral density as measured about the Lumbar spine is: ----- L1-L4(G/cm2): 1.082 T Score Values are as follows: ----- L2: -0.7 ----- L3: -1.0 ----- L4: -1.2 ----- L1-L4: -0.8 Bone mineral density has: Decreased -5.1% since study of: 02/03/2019 Bone mineral density about the R hip (g/cm2): 0.821 Bone mineral density about the L hip (g/cm2): 0.817 T Score values are as follows: -----R Neck: -1.6 -----L Neck: -1.6 -----R Total: -0.9 -----L Total: -0.8 Bone mineral density has: Decreased -4.8% since study of: 02/03/2019 IMPRESSION: Osteopenia (T Score between -2.5 and -1) remains present. Bone density decreased or is diminished fr om prior. There remains slightly increased risk of fracture and the patient may be considered for treatment. Re-Screen 2-5 years. NOTE: T-SCORE=SD OF THE YOUNG ADULT MEAN.
== END | disposition home or self-care (01) ==
LOC: RADBDWWP 10:12
PROVIDERS: ATTEND Internal Medicine Hematology & Oncology
DX: M85.80 Other specified disorders of bone density and structure, unspecified site (principal); N95.9 Unspecified menopausal and perimenopausal disorder; Z79.890 Hormone replacement therapy
CPT/HCPCS: 77080

== ENCOUNTER → 2021-03-15 | Outpatient (CLI) | payer MEDICARE ==
--- NOTE | 2021-03-15 15:10 | MM ---
Reason for exam: follow-up at short interval from prior study. Last mammogram was performed 9 months ago. History: Patient is postmenopausal and has history of breast cancer at age 63. Family history of breast cancer in maternal aunt. Benign US biopsy breast VAD LT of the left breast, September 24, 2019. Benign US biopsy breast add'l VAD LT of the left breast, September 24, 2019. Malignant US breast localization LT, May 15, 2018. Lumpectomy of the left breast, May 15, 2018. Malignant US biopsy breast VAD LT of the left breast, April 17, 2018. Benign stereotactic core biopsy of the left breast, April 25, 2001. Core biopsy of the left breast. Taking antineoplastic for 2 years beginning at age 63. Physical Findings: Nurse Summary: 2 x 1cm nodule in the left breast posterior nipple (nurse ts). MG 3D Diag Mammo W/Cad LT CC, MLO, and XCCL view(s) were taken of the left breast. Prior study comparison: June 24, 2020, bilateral MG 3d diag mammo w/cad EFRAÍN. September 24, 2019, left breast MG diagnostic mammo LT wo CAD. There are scattered fibroglandular densities. There is no discrete abnormality including area of concern left palpable subareolar. Post surgical changes left subareolar. These results were verbally communicated with the patient and result sheet given to the patient on 03/15/21. ASSESSMENT: Incomplete: need additional imaging evaluation, BI-RAD 0 RECOMMENDATION: Ultrasound of the left breast.
--- NOTE | 2021-03-15 15:12 | USB ---
Reason for exam: additional evaluation requested from abnormal screening. History: Patient is postmenopausal and has history of breast cancer at age 63. Family history of breast cancer in maternal aunt. Benign US biopsy breast VAD LT of the left breast, September 24, 2019. Benign US biopsy breast add'l VAD LT of the left breast, September 24, 2019. Malignant US breast localization LT, May 15, 2018. Lumpectomy of the left breast, May 15, 2018. Malignant US biopsy breast VAD LT of the left breast, April 17, 2018. Benign stereotactic core biopsy of the left breast, April 25, 2001. Core biopsy of the left breast. Taking antineoplastic for 2 years beginning at age 63. US Breast Limited LT Left limited breast ultrasound including focal area of concern, retroareolar and axilla demonstrates a 0.8 x 0.6 x 1.5cm irregular, hypoechoic lesion at 3 o'clock, lumpectomy scar, recheck in 4 months, a 1.6 x 1.5 x 1.0cm oval, lobular, mixed lesion at the posterior nipple and a 1.1 x 1.0 x 0.6cm oval lymph node at the axilla. These results were verbally communicated with the patient and result sheet given to the patient on 03/15/21. ASSESSMENT: Probably benign, BI-RAD 3 RECOMMENDATION: Follow-up diagnostic mammogram of both breasts in 4 months. Ultrasound of the left breast in 4 months.
== END | disposition home or self-care (01) ==
LOC: RADMAMWWP 13:01
PROVIDERS: ATTEND Radiology Diagnostic Radiology
DX: R92.8 Other abnormal and inconclusive findings on diagnostic imaging of breast (principal)
CPT/HCPCS: 77065; 76642; G0279; 77061

== ENCOUNTER → 2021-09-11 | Outpatient (CLI) | payer MEDICARE ==
--- NOTE | 2021-09-11 14:36 | USB ---
Reason for Exam: Additional evaluation requested from prior study. Last mammogram was performed 1 year(s) and 2 month(s) ago. Patient History: Menarche at age 12. First Full-Term at age 24. Postmenopausal. Breast cancer, age 63. Previous chest radiation therapy at age 63. Previous chemotherapy at age 63. Core Biopsy on the Left side. 05/15/2018, Lumpectomy on the Left side. 09/24/2019, Benign Core Biopsy on the left side. 09/24/2019, Benign Core Biopsy on the left side. Malignant Core Biopsy. 04/17/2018, Malignant Core Biopsy on the left side. 04/25/2001, Benign Stereotactic Core Biopsy on the left side. Maternal aunt had breast cancer. Prior Study Comparison: 05/09/2012 Bilateral Screening Mammogram, [facility]. 01/06/2014 Bilateral Screening Mammogram, [facility]. 10/19/2016 Bilateral Screening Mammogram, [facility]. 02/11/2018 Bilateral Diagnostic Mammogram, [facility]. 02/11/2018 Left Diagnostic Ultrasound, [facility]. 04/17/2018 Left Diagnostic Mammogram, [facility]. 05/15/2018 Left Diagnostic Mammogram, [facility]. 05/18/2019 Bilateral Diagnostic Mammogram, [facility]. 05/18/2019 Left Diagnostic Ultrasound, [facility]. 09/24/2019 Left Diagnostic Mammogram, [facility]. 03/21/2020 Left Diagnostic Ultrasound, [facility]. 06/24/2020 Bilateral Diagnostic Mammogram, [facility]. 06/24/2020 Left Diagnostic Ultrasound, [facility]. 03/15/2021 Left Diagnostic Mammogram, [facility]. 03/15/2021 Left Diagnostic Ultrasound, [facility]. Tissue Density: There are scattered fibroglandular densities. Findings: Analyzed By CAD. Mammogram Biopsy markers are within the right subareolar breast. There are fine calcifications in this region. Distortion from prior biopsy at this location is also evident. There is a focal asymmetric density within the right breast upper outer aspect midportion which is stable from comparison. No suspicious spiculated or lobular masses, clusters of microcalcifications, architectural distortion, or other secondary signs of malignancy radiographically apparent.. Technique: Method: Targeted. Findings: The lateral section of the breast of the left breast, the axilla of the left breast and the retroareolar of the left breast were scanned. Finding 1: Mass. Laterality: Left. Size 10 x 6 x 11 mm. 3 O'clock Quadrant: Upper outer. 3 cm cm from nipple. Shape: Irregular. Finding 2: Mass. Laterality: Left. Size 14 x 9 x 15 mm. Region: Retroareolar. There is a solid lesion near the nipple measuring 1.4 x 0.9 x 1.5 cm. This was present previously and appears well circumscribed and nearly isoechoic with breast tissue. The distortion from the patient's biopsy scar is 3 cm from the nipple 3:00 position is currently estimated to measure 1.0 x 0.6 x 1.1 cm. This area appears stable from comparison. Overall Assessment: Benign, BI-RAD 2 Assessment: MG 3D diag mammo w/cad EFRAÍN - Bilateral: Benign, BI-RAD 2. US breast limited LT - Left: Benign, BI-RAD 2. Management: Diagnostic Mammogram of both breasts in 1 year. A clinical breast exam by your physician is recommended on an annual basis and results should be correlated with mammographic findings. Results were given to the patient verbally at the time of exam. Electronically signed and approved by: Trey Townsend D.O. Radiologis
== END | disposition home or self-care (01) ==
LOC: RADMAMWWP 13:05
PROVIDERS: ATTEND Radiology Diagnostic Radiology
DX: C50.412 Malignant neoplasm of upper-outer quadrant of left female breast (principal)
CPT/HCPCS: 77066; 76642; G0279; 77062

== ENCOUNTER → 2022-09-12 | Outpatient (CLI) | payer MEDICARE ==
--- NOTE | 2022-09-12 11:16 | MM ---
Reason for Exam: Known biopsy proven malignancy. Last screening mammogram was performed 12 month(s) ago. Patient History: Menarche at age 12. First Full-Term at age 24. Postmenopausal. Breast cancer, left, age 63. Previous chest radiation therapy at age 63. Previous chemotherapy at age 63. Core Biopsy on the Left side. 05/15/2018, Lumpectomy on the Left side. 09/24/2019, Benign Core Biopsy on the left side. 09/24/2019, Benign Core Biopsy on the left side. Malignant Core Biopsy. 04/17/2018, Malignant Core Biopsy on the left side. 04/25/2001, Benign Stereotactic Core Biopsy on the left side. Maternal aunt had breast cancer, age 64. Prior Study Comparison: 05/18/2019 Bilateral Diagnostic Mammogram, [facility]. 09/24/2019 Left Diagnostic Mammogram, [facility]. 06/24/2020 Bilateral Diagnostic Mammogram, [facility]. 03/15/2021 Left Diagnostic Mammogram, [facility]. 09/11/2021 Bilateral MG 3D diag mammo w/cad EFRAÍN, [facility]. Tissue Density: There are scattered fibroglandular densities. Findings: Analyzed By CAD. Stable focal asymmetry within the upper outer right breast. No new suspicious masses or worrisome calcifications within the right breast. Posttreatment changes of the left breast with biopsy clips identified. No new suspicious masses or worrisome calcifications within the left breast. Overall Assessment: Benign, BI-RAD 2 Management: Diagnostic Mammogram of both breasts in 1 year. A clinical breast exam by your physician is recommended on an annual basis and results should be correlated with mammographic findings. This exam should not preclude additional follow-up of suspicious palpable abnormalities. Results were given to the patient verbally at the time of exam. Electronically signed and approved by: Behzad Morales D.O.
== END | disposition home or self-care (01) ==
LOC: RADMAMWWP 10:46
PROVIDERS: ATTEND Radiology Radiation Oncology
DX: C50.412 Malignant neoplasm of upper-outer quadrant of left female breast (principal); Z78.0 Asymptomatic menopausal state; Z80.3 Family history of malignant neoplasm of breast
CPT/HCPCS: 77066; G0279; 77062

== ENCOUNTER → 2023-05-01 | Outpatient (CLI) | payer MEDICARE ==
--- NOTE | 2023-05-01 15:48 | CTL ---
EXAMINATION TYPE: CT Low Dose Lung DATE OF EXAM ORDERED: 05/01/2023 HISTORY: 45 pack years history.. Lung cancer screening CT DLP: 84.[address] CTDI: 2.4 mGy Automated exposure control for dose reduction was used. COMPARISON: None available. TECHNIQUE: Low dose computed tomography scan was performed through the chest at 1 mm thick sections a nd reconstructed images in multiple planes at 1 mm and [address] DIAGNOSTIC QUALITY: Satisfactory FINDINGS: LUNG NODULES: There are no significant pulmonary nodules. LUNGS: COPD: Severity: There is moderate upper lobe predominant centrilobular emphysema. Fibrosis: Severity: None Lymph nodes: No adenopathy. Other findings: RIGHT PLEURAL SPACE: Effusion: None Calcification: None Thickening: None Pneumothorax: None LEFT PLEURAL SPACE: Effusion: None Calcification: None Thickening: None Pneumothorax: None HEART: Heart Size: Normal Coronary Calcification: There is moderate patchy coronary artery calcifications. There is significant vascular calcification throughout the thoracic aorta without evidence of aneurysmal dilation. Pericardial Effusion: None OTHER FINDINGS: Upper abdomen: None Bony thorax: None Supraclavicular region: None Other: None IMPRESSION: 1. No significant pulmonary nodules. 2. Moderate emphysema. 3. Moderate coronary artery calcification. CT LUNG RAD AND CT CHEST RECOMMENDATION: Lung-Rad 1 Negative: Continue annual screening with LDCT in 12 months.
== END | disposition home or self-care (01) ==
LOC: RADCTMAIN 14:34
PROVIDERS: ATTEND Family Medicine
DX: Z12.2 Encounter for screening for malignant neoplasm of respiratory organs (principal); J43.2 Centrilobular emphysema; I25.10 Atherosclerotic heart disease of native coronary artery without angina pectoris; F17.210 Nicotine dependence, cigarettes, uncomplicated
CPT/HCPCS: 71271

== ENCOUNTER → 2023-11-27 | Outpatient (CLI) | payer MEDICARE ==
--- NOTE | 2023-11-27 13:31 | BD ---
EXAMINATION TYPE: Axial Bone Density DATE OF EXAM: 11/27/2023 CLINICAL HISTORY: 68 years old Female. ICD-10 CODE: M81.0 age related osteoporosis Height: 59.5 Weight: 185 FRAX RISK QUESTIONS: Family History (Parent hip fracture): no History of Fracture in Adulthood: no Secondary Osteoporosis: yes 3. Menopause before 45: yes Current Tobacco Use: yes RISK FACTORS HISTORY OF: History of Wrist Fracture: yes When: age 10 Surgery to Spine/Hip(right/left)/Wrist (right/left): no MEDICATIONS: Thyroid Medications: no Osteoporosis Medications: no EXAM MEASUREMENTS: Bone mineral densitometry was performed using the [employer] System. Bone mineral density as measured about the Lumbar spine is: ----- L1-L4(G/cm2): 1.152 T Score Values are as follows: ----- L1: 0.1 ----- L2: -1.1 ----- L3: 0.3 ----- L4: -0.4 ----- L1-L4: -0.2 Z Score Values are as follows: ----- L1: 1.1 ----- L2: -0.1 ----- L3: 1.3 ----- L4: 0.6 ----- L1-L4: 0.8 Bone mineral density has: Increased 6.5% since study of: 03/03/2021 Bone mineral density about the R hip (g/cm2): 0.922 Bone mineral density about the L hip (g/cm2): 0.906 T Score values are as follows: -----R Neck: -1.6 -----L Neck: -1.7 -----R Total: -0.7 -----L Total: -0.8 Z Score values are as follows: -----R Neck: -0.4 -----L Neck: -0.5 -----R Total: 0.2 -----L Total: 0.1 Bone mineral density has: Increased 1.9% since study of: 03/03/2021 FRAX%s: The graph provided illustrates a 9.8% chance for a major osteoporotic fx and a 2.3% chance fo r the hips probability for fx in 10 years time. IMPRESSION: Normal (Values between +1 and -1 indicate normal bone mass). Consider repeating this study in 5 year s or sooner if there is some new clinical indication. NOTE: T-SCORE=SD OF THE YOUNG ADULT MEAN.
== END | disposition home or self-care (01) ==
LOC: RADBDWWP 10:48
PROVIDERS: ATTEND Internal Medicine Hematology & Oncology
DX: M81.0 Age-related osteoporosis without current pathological fracture (principal)
CPT/HCPCS: 77080

== ENCOUNTER → 2023-12-17 | Outpatient (CLI) | payer MEDICARE ==
--- NOTE | 2023-12-17 13:38 | MM ---
Reason for Exam: Hx of breast cancer, conservation therapy. Last mammogram was performed 1 year(s) and 4 month(s) ago. Patient History: Menarche at age 12. First Full-Term at age 24. Postmenopausal. Breast cancer, left, age 63. Previous chest radiation therapy at age 63. Previous chemotherapy at age 63. Core Biopsy on the Left side. 05/15/2018, Lumpectomy on the Left side. 09/24/2019, Benign Core Biopsy on the left side. 09/24/2019, Benign Core Biopsy on the left side. Malignant Core Biopsy. 04/17/2018, Malignant Core Biopsy on the left side. 04/25/2001, Benign Stereotactic Core Biopsy on the left side. Maternal aunt had breast cancer, age 64. Prior Study Comparison: 01/06/2014 Bilateral Screening Mammogram, [facility]. 10/19/2016 Bilateral Screening Mammogram, [facility]. 02/11/2018 Bilateral Diagnostic Mammogram, [facility]. 02/11/2018 Left Diagnostic Ultrasound, [facility]. 04/17/2018 Left Diagnostic Mammogram, [facility]. 05/15/2018 Left Diagnostic Mammogram, [facility]. 05/18/2019 Bilateral Diagnostic Mammogram, [facility]. 05/18/2019 Left Diagnostic Ultrasound, [facility]. 09/24/2019 Left Diagnostic Mammogram, [facility]. 03/21/2020 Left Diagnostic Ultrasound, [facility]. 06/24/2020 Bilateral Diagnostic Mammogram, [facility]. 06/24/2020 Left Diagnostic Ultrasound, [facility]. 03/15/2021 Left Diagnostic Mammogram, [facility]. 03/15/2021 Left Diagnostic Ultrasound, [facility]. 09/11/2021 Bilateral MG 3D diag mammo w/cad EFRAÍN, [facility]. 09/11/2021 Left US breast limited LT, [facility]. 09/12/2022 Bilateral MG 3D diag mammo w/cad EFRAÍN, [facility]. Tissue Density: The breasts are heterogeneously dense, which may obscure small masses. Findings: Analyzed By CAD. Postoperative lumpectomy changes left breast. No evidence for new mass or new area of distortion. No suspicious microcalcifications. Overall Assessment: Benign, BI-RAD 2 Management: Diagnostic Mammogram of both breasts in 1 year. . Results were given to the patient verbally at the time of exam. Patient should continue monthly self-breast exams. A clinical breast exam by your physician is recommended on an annual basis. This exam should not preclude additional follow-up of suspicious palpable abnormalities. Note on Annette scores and lifetime risk: 1. A Annette score greater than 3% is considered moderate risk. If this is the case, consider specialist referral to assess eligibility for a risk reducing agent. 2. If overall lifetime risk for the development of breast cancer is 20% or higher, the patient may qualify for future screening with alternating mammogram and breast MRI. [facility], , 12/17/2023 1:35 PM. Electronically signed and approved by: Bashir Stroud M.D. Radiologis
== END | disposition home or self-care (01) ==
LOC: RADMAMWWP 13:06
PROVIDERS: ATTEND Family Medicine
DX: C50.919 Malignant neoplasm of unspecified site of unspecified female breast
CPT/HCPCS: 77062; 77066

== ENCOUNTER → 2024-07-10 | Outpatient (CLI) | payer MEDICARE ==
--- NOTE | 2024-07-10 11:16 | MM ---
Reason for Exam: Clinical finding. Last screening mammogram was performed 6 month(s) ago. Indicated Problems: Lump or thickening. Patient History: Menarche at age 12. First Full-Term at age 24. Postmenopausal. Breast cancer, left, age 63. Previous chest radiation therapy at age 63. Previous chemotherapy at age 63. Core Biopsy on the Left side. 05/15/2018, Lumpectomy on the Left side. 09/24/2019, Benign Core Biopsy on the left side. 09/24/2019, Benign Core Biopsy on the left side. Malignant Core Biopsy. 04/17/2018, Malignant Core Biopsy on the left side. 04/25/2001, Benign Stereotactic Core Biopsy on the left side. Maternal aunt had breast cancer, age 64. Prior Study Comparison: 09/11/2021 Bilateral MG 3D diag mammo w/cad [facility]RA[facility], [facility]. 09/12/2022 Bilateral MG 3D diag mammo w/cad [facility], [facility]. 12/17/2023 Bilateral MG 3D diag mammo w/cad [facility], [facility]. Tissue Density: Left: The breasts are heterogeneously dense, which may obscure small masses. Findings: Analyzed By CAD. Left retroareolar small calcified lesion likely reflective of adenoidal cyst with mural calcification persists and is somewhat more conspicuous. Ultrasound is recommended at the site of patient's clinical concern left retroareolar region. Overall Assessment: Incomplete: need additional imaging evaluation, BI-RAD 0 Management: Diagnostic Breast Ultrasound of the left breast. . Results were given to the patient verbally at the time of exam. Patient should continue monthly self-breast exams. A clinical breast exam by your physician is recommended on an annual basis. This exam should not preclude additional follow-up of suspicious palpable abnormalities. Note on Annette scores and lifetime risk: 1. A Annette score greater than 3% is considered moderate risk. If this is the case, consider specialist referral to assess eligibility for a risk reducing agent. 2. If overall lifetime risk for the development of breast cancer is 20% or higher, the patient may qualify for future screening with alternating mammogram and breast MRI. [facility], , 07/10/2024 11:12 AM. Electronically signed and approved by: Bashir Stroud M.D. Radiologis
--- NOTE | 2024-07-10 11:32 | USB ---
Reason for Exam: Follow-up at short interval from prior study. Patient History: Menarche at age 12. First Full-Term at age 24. Postmenopausal. Breast cancer, left, age 63. Previous chest radiation therapy at age 63. Previous chemotherapy at age 63. Core Biopsy on the Left side. 05/15/2018, Lumpectomy on the Left side. 09/24/2019, Benign Core Biopsy on the left side. 09/24/2019, Benign Core Biopsy on the left side. Malignant Core Biopsy. 04/17/2018, Malignant Core Biopsy on the left side. 04/25/2001, Benign Stereotactic Core Biopsy on the left side. Maternal aunt had breast cancer, age 64. Technique: Method: Targeted. Prior Study Comparison: 09/11/2021 Bilateral MG 3D diag mammo w/cad [facility], [facility]. 09/12/2022 Bilateral MG 3D diag mammo w/cad [facility], [facility]. 12/17/2023 Bilateral MG 3D diag mammo w/cad [facility], [facility]. Findings: The axilla of the left breast and the retroareolar of the left breast were scanned. Oil cyst is noted at the site of patient's clinical concern which corresponds to the left retroareolar region. Lesion measures 1.1 x 1.4 x 1.0 cm. No suspicious masses are present. Overall Assessment: Benign, BI-RAD 2 Management: Diagnostic Mammogram of both breasts in 6 months. A clinical breast exam by your physician is recommended on an annual basis and results should be correlated with mammographic findings. This exam should not preclude additional follow-up of suspicious palpable abnormalities. Results were given to the patient verbally at the time of exam. [facility], , 07/10/2024 11:30 AM. Electronically signed and approved by: Bashir Stroud M.D. Radiologis
== END | disposition home or self-care (01) ==
LOC: RADMAMWWP 10:35
PROVIDERS: ATTEND Family Medicine
DX: N63.42 Unspecified lump in left breast, subareolar (principal); R92.332 Mammographic heterogeneous density, left breast; Z80.3 Family history of malignant neoplasm of breast; Z78.0 Asymptomatic menopausal state; Z85.3 Personal history of malignant neoplasm of breast
CPT/HCPCS: 77061; 77065